=== PATIENT | male | born 2000 ===

== ENCOUNTER 2022-03-21 16:35 | Emergency (ER) | payer SELFPAY ==
[~2022-03-21] VITALS: Ht 185.4 cm; Wt 104.3 kg
[2022-03-21 22:23] VITALS: BP 120/75
== END 2022-03-21 22:57 | disposition home or self-care (01) ==
LOC: ER 16:35
DX: S89.91XA Unspecified injury of right lower leg, initial encounter (principal); W22.8XXA Striking against or struck by other objects, initial encounter; Y93.89 Activity, other specified; Y92.89 Other specified places as the place of occurrence of the external cause; Y99.8 Other external cause status
CPT/HCPCS: 73562

== ENCOUNTER 2022-04-24 23:41 | Emergency (ER) | payer SELFPAY ==
[~2022-04-24] VITALS: Ht 185.4 cm; Wt 129.0 kg
[2022-04-25 00:23] VITALS: BP 121/76
== END 2022-04-25 03:40 | disposition home or self-care (01) ==
LOC: ER 23:41
DX: J06.9 Acute upper respiratory infection, unspecified (principal); F17.290 Nicotine dependence, other tobacco product, uncomplicated; Z20.822 Contact with and (suspected) exposure to COVID-19
CPT/HCPCS: 36415; 71045

== ENCOUNTER 2024-07-17 15:47 | Emergency (ER) | payer MEDICAID, OTHER ==
[~2024-07-17] VITALS: Ht 182.9 cm; Wt 134.9 kg
[2024-07-17 16:05] LABS: Urine Bacteria None Seen /hpf (None Seen)
[2024-07-17 16:12] LABS: Urine Blood Negative /uL (Negative); Urine Clarity Clear (Clear); Urine Color Light-Yellow (Yellow); Urine Protein, UAD Negative (Negative); Urine Specific Gravity 1.018 (1.001-1.035); Urine Urobilinogen Normal (Negative); Urine WBC 1 /hpf (0 - 3); Urine pH 7.5 (5.0-9.0)
[2024-07-17 16:57] LABS: Basophils # (auto) 0.1 10 ^3/uL (0-0.2); Basophils % (auto) 0.5 % (0.0-2.0); Eosinophils # (auto) 0.1 10 ^3/uL (0-0.8); Hematocrit 48.3 % (41.0-53.0); Hemoglobin 16.7 g/dL (13.5-17.5); Lymphocytes # (auto) 3.3 10 ^3/uL (0.4-5.4); Lymphocytes % (auto) 30.9 % (10.0-50.0); Mean Corpuscular Hgb Conc. 34.7 g/dL (32.0-36.0); Mean Corpuscular Volume 92.2 fL (80.0-100.0); Monocytes # (auto) 0.7 10 ^3/uL (0-1.3); Monocytes % (auto) 6.1 % (0.0-12.0); Neutrophils # (auto) 6.6 10 ^3/uL (1.6-8.6); Neutrophils % (auto) 61.5 % (37.0-80.0); Nucleated Red Blood Cells % 0.1 %; Platelet Count (auto) 331 10^3/uL (140-450); Red Blood Cells 5.23 10^6/uL (4.5-5.90); White Blood Cell 10.7 10^3/uL (4.4-10.8)
[2024-07-17 17:03] LABS: Chloride 106 mmol/L (98-107); Potassium 3.8 mmol/L (3.5-5.1); Sodium 138 mmol/L (136-145)
[2024-07-17 17:04] LABS: Anion Gap 5 (5-15); Carbon Dioxide 27 mmol/L (20-31)
[2024-07-17 17:09] LABS: BUN/Creatinine Ratio 6.3 (10.0-20.0); Blood Urea Nitrogen 6 mg/dL (9-23); Glucose 101 mg/dL (74-106)
[2024-07-17] MEDS ORDERED: ACET500T58 PO (20:19)
[2024-07-17] MEDS ORDERED: CYCL-837 PO (20:19)
[2024-07-17 20:30] VITALS: BP 117/83; PULSE 85; RESP 18; TEMP 98.1; O2SAT 98
== END 2024-07-17 20:41 | disposition home or self-care (01) ==
LOC: ER 15:47
DX: R16.2 Hepatomegaly with splenomegaly, not elsewhere classified (principal)
CPT/HCPCS: 36415; 74176; 80048; 81001; 85025